=== PATIENT | male | born 1950 | race Caucasian/White ===

== ENCOUNTER 2019-11-12 06:13 | Day surgery (SDC) | payer MEDICARE ==
[~2019-11-12] VITALS: Ht 175.3 cm; Wt 76.2 kg
[~2019-11-12 06:13] MED LIST: DICL75ER PO; Diclofenac Pota50 MG PO; GABA100 PO; MEDICAL MARIJUANA; Mobic15 MG PO; Solaraze100 GM TOP; TAMS.4ER PO; VITAMIN D31000 UNIT PO; Vitamin D2000 UNIT PO
== END 2019-11-12 09:13 | disposition home or self-care (01) ==
LOC: ORSCSDS 06:13
PROVIDERS: Podiatrist Foot & Ankle Surgery
PROC: 0QBP0ZZ Excision of Left Metatarsal, Open Approach (ICD-10-PCS; principal; 2019-11-12 07:30)
PROC: 0QBM0ZZ Excision of Left Tarsal, Open Approach (ICD-10-PCS; principal; 2019-11-12 07:30)
DX: M19.072 Primary osteoarthritis, left ankle and foot (principal); Z87.891 Personal history of nicotine dependence; Z79.899 Other long term (current) drug therapy
CPT/HCPCS: J0171; J0690; J1100; J2250; J2405; J2704; J3010; J7120

== ENCOUNTER 2023-02-21 08:21 | Day surgery (SDC) | payer MEDICARE ==
[~2023-02-21] VITALS: Ht 172 cm; Wt 74.3 kg
[~2023-02-21 08:21] MED LIST changes: +ALPR1 PO; +Prinivil10 MG PO
--- NOTE | 2023-02-21 09:20 | NUR ---
Ambulatory in Day Surgery. Pre-Op teaching done. Pt verbalizes understanding. Patient confirms NPO status and agrees with scheduled surgery. Patient reports completing Chlorhexadine shower X2 prior to admission to hospital. Lungs clear T/O to Auscultation. Patient States Post-Procedure ride home has been arranged.
--- NOTE | 2023-02-21 10:40 | NUR ---
02/21/23 1040 Dhaval Medrano I PT ARRIVED IN OR, HAIR WAS CLIPPED IN DAY SURGERY, NOTED REDNESS AND IRRITATION TO CHEST AND UPPER ABDOMEN, DR. DONNELLY WAS NOTIFIED.
--- NOTE | 2023-02-21 11:46 | NUR ---
Discharge instructions reviewed with patient. Patient verbalizes understanding. Copy given to patient to take home. Dressing to procedure site clean, dry, intact with no visible drainage, swelling, erythema or bruising noted. THIS RN UNABLE TO REACH PT'S SPOUSE FOR RIDE. PT READY FOR DC AND WILL WAIT FOR HIS RIDE IN WAITING AREA. PT IS DENYING PAIN OR NAUSEA AT THIS TIME.
== END 2023-02-21 22:58 | disposition home or self-care (01) ==
LOC: ORSCMMR 08:21 → ORD 09:45 → ORSCMMR 22:58
PROVIDERS: Surgery
PROC: 0WQF0ZZ Repair Abdominal Wall, Open Approach (ICD-10-PCS; principal; 2023-02-21 09:45)
DX: K43.9 Ventral hernia without obstruction or gangrene (principal); I10 Essential (primary) hypertension; G62.9 Polyneuropathy, unspecified; M79.7 Fibromyalgia; Z79.899 Other long term (current) drug therapy
CPT/HCPCS: A9270; J0690; J1100; J2250; J2405; J2704; J3010; J7120

== ENCOUNTER → 2025-03-16 | Outpatient (CLI) | payer OTHER ==
[2025-03-16 08:02] LABS: BASOPHILS ABSOLUTE AUTO 0.03 K/mm3 (0.00-0.23); BASOPHILS PERCENT AUTO 1 % (0-2); EOSINOPHILS ABSOLUTE AUTO 0.14 K/mm3 (0.00-0.68); EOSINOPHILS PERCENT AUTO 2 % (0-6); Hematocrit 36.2 % (37.0-53.0); Hemoglobin 12.1 g/dL (13.5-17.5); IMMATURE GRAN ABSOLUTE AUTO 0.01 K/mm3 (0.00-0.10); IMMATURE GRAN PERCENT AUTO 0 % (0-1); LYMPHOCYTES ABSOLUTE AUTO 2.34 K/mm3 (0.84-5.20); LYMPHOCYTES PERCENT AUTO 35 % (21-46); MONOCYTES ABSOLUTE AUTO 0.48 K/mm3 (0.16-1.47); MONOCYTES PERCENT AUTO 7 % (4-13); Mean Corpuscular HGB 34.3 pg (26.0-34.0); Mean Corpuscular HGB Conc 33.4 g/dL (31.5-36.5); Mean Corpuscular Volume 103 fL (80-100); Mean Platelet Volume 10.4 fL (9.1-12.4); NEUTROPHILS ABSOLUTE AUTO 3.61 K/mm3 (1.96-9.15); NEUTROPHILS PERCENT AUTO 55 % (41-73); Platelet Count 238 K/mm3 (150-400); RDW Coefficient Variation 12.9 % (11.7-14.2); RDW Standard Deviation 48.3 fL (35.1-46.3); Red Blood Cell Count 3.53 M/mm3 (4.30-5.90); White Blood Cell Count 6.61 K/mm3 (4.00-11.30)
[2025-03-16 08:22] LABS: Percent Saturation 16.8 % (20.0-50.0)
== END | disposition home or self-care (01) ==
LOC: LAB 06:22 → LAB SHORT 06:22
PROVIDERS: Family Medicine
DX: D64.9 Anemia, unspecified (principal)
CPT/HCPCS: 36415; 82728; 83540; 83550; 85025

== ENCOUNTER → 2025-03-29 | Outpatient (CLI) | payer OTHER ==
[2025-03-31 12:35] LABS: Stool Occult Bld Immuno 1 Negative (NEGATIVE)
== END | disposition home or self-care (01) ==
LOC: LAB SHORT 14:27 → LAB 14:27 → LAB SHORT 03-30 14:24
PROVIDERS: Family Medicine
DX: D64.9 Anemia, unspecified (principal)
CPT/HCPCS: G0328

== ENCOUNTER 2025-08-15 06:31 | Emergency (ER) | payer OTHER ==
[~2025-08-15] VITALS: Ht 175.3 cm; Wt 68.0 kg
[2025-08-15 06:40] VITALS: BP 158/82
[2025-08-15] MEDS ORDERED: HYDROcodone 5-APAP 325 TAB PO ONE (08:00)
[2025-08-15] MEDS ORDERED: Percocet 5-3251 EACH PO (08:26)
== END 2025-08-15 08:42 | disposition home or self-care (01) ==
LOC: ER 06:31
DX: N44.00 Torsion of testis, unspecified (principal); Z79.899 Other long term (current) drug therapy
CPT/HCPCS: 99281; A9270

== ENCOUNTER 2025-10-03 10:38 | Day surgery (SDC) | payer OTHER ==
[~2025-10-03] VITALS: Ht 172.7 cm; Wt 66.9 kg
[~2025-10-03 10:38] MED LIST changes: +Glycopyrrolate 0.2 MG/ML 1MLVIAL ONE; +Ondansetron HCl 2 MG / ML 2ML Vial ONE; +Percocet 5-3251 EACH PO; +ePHEDrine Sulfate 50 MG/ML 1ML Injection ONE
[2025-10-03] MEDS ORDERED: IRON (11:10)
--- NOTE | 2025-10-03 11:48 | NUR ---
10/03/25 1148 TELLO DONNELLY CONSULTED PRIOR TO EXAM. RDS
[2025-10-03 13:32] VITALS: BP 142/85
== END 2025-10-03 13:48 | disposition home or self-care (01) ==
LOC: ORSCSDS 10:38 → ORD 10-05 12:30
PROVIDERS: Family Medicine
PROC: 0DJD8ZZ Inspection of Lower Intestinal Tract, Via Natural or Artificial Opening Endoscopic (ICD-10-PCS; principal; 2025-10-03 12:00)
DX: Z12.11 Encounter for screening for malignant neoplasm of colon (principal); K57.30 Diverticulosis of large intestine without perforation or abscess without bleeding; K64.4 Residual hemorrhoidal skin tags; K64.2 Third degree hemorrhoids; N40.0 Benign prostatic hyperplasia without lower urinary tract symptoms; I10 Essential (primary) hypertension; R00.1 Bradycardia, unspecified; Z79.899 Other long term (current) drug therapy; Z87.891 Personal history of nicotine dependence
CPT/HCPCS: J0461; J2003; J2405; J2704; J7120